=== PATIENT | male | born 1955 | race Caucasian/White ===

== ENCOUNTER 2020-04-22 00:46 | Emergency (ER) | payer SELFPAY ==
[~2020-04-22] VITALS: Ht 172.7 cm; Wt 110.0 kg
[2020-04-22] MEDS ORDERED: LIDOCAINE PF 2% 5 ML (XYLOCAINE) VIAL ONE (01:01)
[2020-04-22] MEDS ORDERED: LIDOCAINE/EPI 2% 1:100,00 (XYLOCAINE) 20 ML VIAL ONE (01:05)
[2020-04-22] MEDS ORDERED: lisINopril 10 MG (PRINIVIL) TABLET PO ONE (01:15)
[2020-04-22] MEDS ORDERED: cloNIDine 0.2 MG (CATAPRES) TAB PO ONE (01:15)
[2020-04-22] MEDS ORDERED: LISI40TA PO (01:19)
[2020-04-22] MEDS ORDERED: CEPH-507 PO (01:19)
[2020-04-22] MEDS ORDERED: CARV6.252 PO (01:19)
--- NOTE | 2020-04-22 01:19 | ED EENT ---
History of Present Illness General Chief Complaint: Nasal Problems Stated Complaint: NOSE BLEED History of Present Illness Date Seen by Provider: Apr 22, 2020 Time Seen by Provider: 01:13 Initial Comments Patient presenting to emergency department for evaluation of epistaxis that started approximately 11 PM and he said he could not get it to stop with pressure so he presented to the emergency department. He denies prior epistaxis says that he used to be on blood pressure medicines but had to stop them a year ago as he could not afford them anymore now he does not have a primary care provider. Patient denies any dizziness weakness nausea vomiting. He is in no obvious distress but is quite hypertensive and tachycardic. He thinks it with medications he was on lisinopril but does not remember the other medication he was on. Allergies and Home Medications Allergies Coded Allergies: No Known Drug Allergies (Unverified , 04/22/20) Patient Home Medication List Home Medication List Reviewed: Yes Review of Systems Review of Systems Constitutional: no symptoms reported Eyes: No Symptoms Reported Ears: No Symptoms Reported Nose: epistaxis Mouth: no symptoms reported Respiratory: no symptoms reported Cardiovascular: no symptoms reported Gastrointestinal: no symptoms reported Neurological: No Symptoms Reported All Other Systems Reviewed Negative Unless Noted: Yes Past Namnekh-Pjoorw-Kbeedz Hx Patient Social History Alcohol Use: Occasionally Uses Recreational Drug Use: Yes Drug of Choice: marijuana Smoking Status: Never a Smoker 2nd Hand Smoke Exposure: No Recent Foreign Travel: No Contact w/Someone Who Travel: No Recent Hopitalizations: No Seasonal Allergies Seasonal Allergies: No Past Medical History Surgeries: No Respiratory: No Cardiac: Yes Hypertension Neurological: No Genitourinary: No Gastrointestinal: No Musculoskeletal: No Endocrine: No HEENT: No Cancer: No Psychosocial: No Integumentary: No Blood Disorders: No Physical Exam Height, Weight, BMI Height: '" Weight: lbs. oz. kg; BMI Method: General Appearance: WD/WN, no apparent distress Eyes: bilateral eye PERRL, bilateral eye EOMI Ears: bilateral ear TM normal Nose: active bleeding (right naris has no bleeding however the left naris has what appears to be an anterior source with active bleeding. There is posterior pharyngeal bleeding is well) Mouth/Throat: pharynx normal Neck: supple Cardiovascular: tachycardia Respiratory: no respiratory distress Gastrointestinal: non tender, soft Skin: warm/dry Procedures/Interventions Nasal : Nasal Location: Left Clots Cleared from Nasal: Patient Blowing Nasal Drops Instilled: Afrin, Lidocaine Inspection with: Otoscope Nasal Procedures: Rapid Rhino Progress Afrin was put in both ears and then lidocaine with epinephrine was also placed and the bleeding slowed down however did not completely stops of a Rhino Rocket was placed in the left ear with complete sensation of the bleeding afterwards Progress/Results/Core Measures Results/Orders My Orders Orders - JCARLOS STRAUSS DO Lidocaine 2% Pf 5 Ml (Xylocaine 2% Pf) (04/22/20 01:01) Lisinopril Tablet (Zestril Tablet) (04/22/20 01:15) Clonidine Tablet (Catapres Tablet) (04/22/20 01:15) Lidocaine/Epi 2% 1:100,000 (Xylocaine/Ep (04/22/20 01:05) Progress Progress Note : Progress Note Patient takes no blood thinners and faxed takes no medications at all despite he should be on medications for blood pressure. I gave him a dose of lisinopril and clonidine here and his blood pressure and heart rate improved however told him that I will need to start him on 2 blood pressure medications and he will ne ed follow with a primary care provider. I started him on $4 medications for blood pressure and Keflex to prevent infection. I told her follow with ENT Dr. Masters and also reemphasized the importance of having his chronic hypertension treated as medications to put him on will likely not be exactly what he needs and will have to be adjusted as needed on repeat blood pressure checks. Patient's heart rate improved to 92 and his blood pressure improved as well but I did not want to get into a normal range as this would cause him to quick of a decrease in his blood pressure. Patient aware and agreeable with plan for discharge and verbalized understanding of the need for short-term PCP and ENT follow-up and strict ED return precautions discussed including worsening pain bleeding dizziness or other general concerns. Departure Impression Primary Impression: Epistaxis Additional Impression: Asymptomatic hypertension Disposition: HOME, SELF-CARE Condition: Stable Departure-Patient Inst. Referrals: AWAIS MASTERS MD NO,LOCAL PHYSICIAN (PCP) Primary Care Physician Patient Instructions: Nosebleeds (DC) Scripts Carvedilol (Carvedilol) 6.25 Mg Tablet 6.25 MG PO BID, #60 TAB Prov: JCARLOS STRAUSS DO 04/22/20 Lisinopril (Lisinopril) 40 Mg Tablet 40 MG PO DAILY, #30 TAB Prov: JCARLOS STRAUSS DO 04/22/20 Cephalexin (Keflex) 500 Mg Capsule 500 MG PO BID for 7 Days, CAP Prov: JCARLOS STRAUSS DO 04/22/20 JCARLOS STRAUSS DO Apr 22, 2020 01:18
[2020-04-22 02:10] VITALS: BP 215/155
== END 2020-04-22 02:10 | disposition home or self-care (01) ==
LOC: ER FS 00:49
DX: R04.0 Epistaxis (principal); I10 Essential (primary) hypertension

== ENCOUNTER 2020-04-26 19:21 | Inpatient (IN) | payer SELFPAY ==
[~2020-04-26] VITALS: Ht 172.7 cm; Wt 113.9 kg
[~2020-04-26 19:21] MED LIST: CARV6.252 PO; CEPH-507 PO; LISI40TA PO
[2020-04-26] MEDS ORDERED: LABETALOL HCL 20 MG/4 ML VIAL IV ONE ×3 (19:45→21:00)
[2020-04-26 20:06] LABS: HEMATOCRIT 42 % (40-54); HEMOGLOBIN 13.5 G/DL (13.3-17.7); MEAN CORPUSCULAR HEMOGLOBIN 27 PG (25-34); MEAN CORPUSCULAR HGB CONC 33 G/DL (32-36); MEAN CORPUSCULAR VOLUME 84 FL (80-99); MEAN PLATELET VOLUME 9.7 FL (7.4-10.4); WHITE BLOOD COUNT 13.3 10^3/uL (4.3-11.0)
[2020-04-26 20:07] LABS: BASOPHILS # (AUTO) 0.1 10^3/uL (0.0-0.1); BASOPHILS % (AUTO) 1 % (0-10); EOSINOPHILS # (AUTO) 0.2 10^3/uL (0.0-0.3); EOSINOPHILS % (AUTO) 1 % (0-10); LYMPHOCYTES # (AUTO) 1.6 X 10^3 (1.0-4.0); LYMPHOCYTES % (AUTO) 12 % (12-44); MONOCYTES # (AUTO) 0.8 X 10^3 (0.0-1.0); MONOCYTES % (AUTO) 6 % (0-12); NEUTROPHILS # (AUTO) 10.6 X 10^3 (1.8-7.8); NEUTROPHILS % (AUTO) 80 % (42-75); PLATELET COUNT 449 10^3/uL (130-400)
[2020-04-26 20:08] LABS: INR 0.9 (0.8-1.4); PROTHROMBIN TIME PATIENT 12.4 SEC (12.2-14.7)
[2020-04-26 20:16] LABS: BUN/CREATININE RATIO 15; CARBON DIOXIDE 25 MMOL/L (21-32); CHLORIDE 107 MMOL/L (98-107); CREATININE SERUM 1.43 MG/DL (0.60-1.30); GFR ESTIMATED 50; GLUCOSE 117 MG/DL (70-105); POTASSIUM 4.4 MMOL/L (3.6-5.0); SODIUM 143 MMOL/L (135-145)
[2020-04-26 20:17] LABS: ALANINE AMINOTRANSFERASE 15 U/L (0-55); ALBUMIN 4.6 GM/DL (3.2-4.5); ALKALINE PHOSPHATASE 117 U/L (40-136); BILIRUBIN,TOTAL 0.2 MG/DL (0.1-1.0); CALCIUM 9.3 MG/DL (8.5-10.1); TOTAL PROTEIN 7.6 GM/DL (6.4-8.2)
[2020-04-26] MEDS ORDERED: NITROPRUSSIDE INJECTION 50 MG in D5W IV SOLUTION (EXCEL) 250 ML IV SCH (22:15)
[2020-04-27] MEDS ORDERED: NITROPRUSSIDE INJECTION 50 MG in D5W IV SOLUTION (EXCEL) 250 ML IV SCH (01:15)
[2020-04-27 03:18] LABS: BASOPHILS % (AUTO) 0 % (0-10); EOSINOPHILS # (AUTO) 0.1 10^3/uL (0.0-0.3); EOSINOPHILS % (AUTO) 1 % (0-10); HEMATOCRIT 36 % (40-54); HEMOGLOBIN 11.6 g/dL (13.3-17.7); LYMPHOCYTES # (AUTO) 1.4 10^3/uL (1.0-4.0); LYMPHOCYTES % (AUTO) 13 % (12-44); MEAN CORPUSCULAR HEMOGLOBIN 28 pg (25-34); MEAN CORPUSCULAR HGB CONC 32 g/dL (32-36); MEAN CORPUSCULAR VOLUME 85 fL (80-99); MEAN PLATELET VOLUME 10.1 fL (9.0-12.2); MONOCYTES # (AUTO) 0.9 10^3/uL (0.0-1.0); MONOCYTES % (AUTO) 8 % (0-12); NEUTROPHILS # (AUTO) 8.5 10^3/uL (1.8-7.8); NEUTROPHILS % (AUTO) 77 % (42-75); PLATELET COUNT 353 10^3/uL (130-400); WHITE BLOOD COUNT 11.1 10^3/uL (4.3-11.0)
--- NOTE | 2020-04-27 03:24 | Pulmonary Consultation ---
YOAV SOLIS,MED STUDENT 04/27/20 0324: History of Present Illness History of Present Illness Date Seen by Provider: Apr 27, 2020 Time Seen by Provider: 03:00 Date of Admission 04/26/20 History of Present Illness Patient is a 65yo male who presented to [facility] ED via EMS yesterday c/o a nosebleed that began 1 hour prior. He has a history of hypertension, and was recently seen in the ED on 04/22 for similar symptoms. He does not have a PCP and has not taken any antihypertensives for a long time due to cost. He also reports headaches and some dizziness, but denies CP, palpitations, syncope, n/v/abdominal pain. He denies any trauma to the area. Initial blood pressure in the ED was 262/167, and he was given a total of 3 doses of Labetalol 20mg IV while in the ED. Blood pressure improved to 177/123, but after admission increased again to 230/157. He was started on nitroprusside, and at the time of exam his blood pressure had improved to 150/111. Allergies and Home Medications Allergies Coded Allergies: No Known Drug Allergies (Unverified , 04/22/20) Home Medications Carvedilol 6.25 Mg Tablet, 6.25 MG PO BID Prescribed by: JCARLOS STRAUSS on 04/22/20118 Cephalexin 500 Mg Capsule, 500 MG PO BID Prescribed by: JCARLOS STRAUSS on 04/22/20118 Lisinopril 40 Mg Tablet, 40 MG PO DAILY Prescribed by: JCARLOS STRAUSS on 04/22/20118 Past Ttiyzmo-Frxuue-Iuibcj Hx Patient Social History Alcohol Use: Denies Use Recreational Drug Use: No Drug of Choice: marijuana Smoking Status: Never a Smoker 2nd Hand Smoke Exposure: No Recent Foreign Travel: No Contact w/Someone Who Travel: No Recent Infectious Disease Expo: No Recent Hopitalizations: No Physical Abuse: No Sexual Abuse: No Mistreated: No Fear: No Seasonal Allergies Seasonal Allergies: No Past Medical History Surgeries: No Respiratory: No Cardiac: Yes Hypertension Neurological: No Genitourinary: No Gastrointestinal: No Musculoskeletal: No Endocrine: No HEENT: No Cancer: No Psychosocial: No Integumentary: No Blood Disorders: No Review of Systems Constitutional: No: Fever, Chills, Weakness Eyes: No: Pain, Vision change ENT: Nose congestion; No: Throat pain, Throat swelling Respiratory: No: Cough, Shortness of breath, Wheezing Cardiovascular: Lt Headedness; No: Chest Pain, Palpitations, Edema Gastrointestinal: No: Nausea, Vomiting, Abdominal Pain, Hematochezia Genitourinary: No Dysuria, No Frequency Neurological: No: Weakness, Numbness, Change in speech Sepsis Event Evaluation Height, Weight, BMI Height: '" Weight: lbs. oz. kg; 38.55 BMI Method: Exam Exam Vital Signs Date Time Temp Pulse Resp B/P (MAP) Pulse Ox O2 Delivery O2 Flow Rate FiO2 04/27/20 01:00 98 Room Air 04/27/20 00:45 35.2 91 20 230/157 97 Room Air 04/26/20 23:27 90 20 177/123 96 Room Air 04/26/20 22:23 91 18 192/127 04/26/20 19:28 37.0 121 20 262/167 (198) 97 Room Air Height & Weight Height: '" Weight: lbs. oz. kg; 38.55 BMI Method: General Appearance: No Apparent Distress, WD/WN, Obese HEENT: PERRL/EOMI, Pharynx Normal Neck: Full Range of Motion, Non Tender, Supple Respiratory: Chest Non Tender, Lungs Clear, Normal Breath Sounds, No Accessory Muscle Use Cardiovascular: Regular Rate, Rhythm, No Edema, No Murmur, Normal Peripheral Pulses Capillary Refill: Less Than 3 Seconds Gastrointestinal: normal bowel sounds, non tender Extremity: Non Tender, No Calf Tenderness, No Pedal Edema Neurologic/Psychiatric: Alert, Oriented x3, Normal Mood/Affect Skin: Normal Color, Warm/Dry Results Lab Laboratory Tests 04/26/20 19:34 Assessment/Plan Assessment/Plan Hypertensive emergency -currently on nitroprusside -EKG Acute kidney injury -monitor creatinine Leukocytosis -improving DVT ppx -SCD's FLAKO BARRERA DO 04/27/20 0450: Allergies and Home Medications Allergies Coded Allergies: No Known Drug Allergies (Unverified , 04/22/20) Home Medications Carvedilol 6.25 Mg Tablet, 6.25 MG PO BID Prescribed by: JCARLOS STRAUSS on 04/22/20118 Cephalexin 500 Mg Capsule, 500 MG PO BID Prescribed by: JCARLOS STRAUSS on 04/22/20118 Lisinopril 40 Mg Tablet, 40 MG PO DAILY Prescribed by: JCARLOS STRAUSS on 04/22/20 0119 Assessment/Plan Assessment/Plan Hypertensive emergency -currently on nitroprusside -D/C nitroprusside -Start Lisinopril and Lopressor PO -Hydralazine PRN, -EKG Acute kidney injury -monitor creatinine -Check UA Leukocytosis -improving DVT ppx -SCD's Supervisory-Addendum Brief Verification & Attestation Participated in pt care: history, MDM, physical Personally performed: exam, history, MDM Care discussed with: Medical Student Procedures: n/a Verification and Attestation of Medical Student E/M Service A medical student performed and documented this service in my presence. I reviewed and verified all information documented by the medical student and made modifications to such information, when appropriate. I personally performed the physical exam and medical decision making. Flako Barrera, Apr 27, 2020,04:52 YOAV SOLIS,MED STUDENT Apr 27, 2020 03:24 FLAKO BARRERA DO Apr 27, 2020 04:50
[2020-04-27 03:33] LABS: ALBUMIN 3.9 GM/DL (3.2-4.5); CHLORIDE 109 MMOL/L (98-107); POTASSIUM 4.4 MMOL/L (3.6-5.0); SODIUM 144 MMOL/L (135-145)
[2020-04-27 03:34] LABS: CALCIUM 8.3 MG/DL (8.5-10.1)
[2020-04-27 03:35] LABS: GLUCOSE 101 MG/DL (70-105); TOTAL PROTEIN 5.8 GM/DL (6.4-8.2)
[2020-04-27 03:36] LABS: CARBON DIOXIDE 23 MMOL/L (21-32)
[2020-04-27 03:37] LABS: BILIRUBIN,TOTAL 0.3 MG/DL (0.1-1.0)
[2020-04-27 03:39] LABS: ALKALINE PHOSPHATASE 78 U/L (40-136); CREATININE SERUM 1.13 MG/DL (0.60-1.30); GFR ESTIMATED > 60
[2020-04-27 03:40] LABS: BUN/CREATININE RATIO 20
[2020-04-27 03:42] LABS: ALANINE AMINOTRANSFERASE 14 U/L (0-55)
--- NOTE | 2020-04-27 07:25 | Diagnostic Imaging Report ---
EXAMINATION: Chest 1 view HISTORY: Hypertensive crisis. COMPARISON: None available. FINDINGS: The lung volumes are normal. No focal consolidation is seen. No large pleural effusion or pneumothorax is seen. The cardiomediastinal silhouette is normal in size and contour. No acute osseous abnormality is seen. IMPRESSION: 1. No acute pleuroparenchymal process. Dictated by: Dictated on workstation # [id number]
[2020-04-27] MEDS ORDERED: HYDROCHLOROTHIAZIDE 12.5 MG (HCTZ) CAP PO SCH (09:00)
[2020-04-27] MEDS ORDERED: lisINopril 20 MG (PRINIVIL) TABLET PO SCH (09:00)
[2020-04-27] MEDS ORDERED: meTOprolol TARTRATE 25 MG (LOPRESSOR) TABLET PO SCH (09:00)
[2020-04-27] MEDS: CARVEDILOL 12.5 MG (COREG) TABLET PO SCH ×2 (10:05→20:10)
[2020-04-27] MEDS: hydrALAZINE (APESOLINE) 20 MG/ML VIAL IV PRN ×2 (10:05→17:04)
[2020-04-27] MEDS ORDERED: HYDROCHLOROTHIAZIDE 12.5 MG (HCTZ) CAP PO NR (11:25)
[2020-04-27] MEDS ORDERED: lisINopril 20 MG (PRINIVIL) TABLET PO NR (11:25)
[2020-04-27] MEDS ORDERED: hydrALAZINE (APRESOLINE) 25 MG TAB PO PRN (11:30)
[2020-04-27] MEDS ORDERED: MULT-1076 PO (11:38)
[2020-04-27] MEDS ORDERED: IBUP-2473 PO (11:38)
[2020-04-27] MEDS ORDERED: CARV6.252 PO (11:38)
[2020-04-27] MEDS ORDERED: LISI40TA PO (11:38)
[2020-04-27] MEDS ORDERED: CEPH500C PO (11:38)
--- NOTE | 2020-04-27 11:39 | NUR ---
SPOKE WITH THE PT (CALLED HIS ROOM PHONE) AND WENT THRU THE EXT MED HISTORY TO COMPLETE THE MED REC PT WAS ABLE TO NAME HIS MEDICATIONS WELL WHEN/HOW HE TAKES EACH, PT DID LET ME KNOW THAT ALL THE MEDICATIONS HE IS TAKING (LISINOPRIL AND CARVEDILOL) ARE NEW OF 04-22-2020 OTC MEDS: MTV W/ IRON IBUPROFEN 200MG- ACCORDING TO THE PT HE TAKES 4 TABS UP TO THREE TIMES A DAY
--- NOTE | 2020-04-27 15:02 | NUR ---
CM/SS: Visited with pt as to plan for discharge, as well as obtaining a physician for management of his high blood pressure. Plan: Pt is from home and will return there. Pt lives with his adult son. Pt will need a ride to [place] when he is discharged and can pay for a portion of the cost. Summary: Pt is in bed at the time of the visit. Pt reports he is here due to his blood pressure being high. According to the monitor it is remaining high at this time. Pt reports a family history of high blood pressure and he has had family members that have had strokes. Pt is advised that many medical things can happen when his blood pressure is so high. He verbalizes understanding. He does report that he seen a doctor in the past and was on two medications up to four times per day. He can not remember the physicians name, but he reports it did help, however he quit taking the medications as he had difficulty with transportation and getting back and forth to appointments. Pt verbalizes understanding of needing to get another physician to monitor his blood pressure. Pt is open to having a physician set up at the [facility] and he reports he will be able to make the appointments and keep his blood pressure in check. Pt lives with his son and shares that both of them currently have suspended drivers licenses and know what they need to do to get them back. He does have an extended family member that can transport him locally to his medical appointments. Pt reports he does not have any other needs related to medical equipment etc. This worker will follow up with pt again once more in known on pt's date of discharge.
--- NOTE | 2020-04-27 15:04 | History & Physical-Hospitalist ---
History of Present Illness HPI/Chief Complaint Gonzalez Mayorga is a 65-year-old male with past medical history of hypertension who presented with a nose bleed. He reports that he had a nose bleed a few days ago and came into the [place] ER. The nose bleed resolved and he was sent home. He was also found to be hypertensive and was started on blood pressure medications, but he did not pick them up. He said he has not been able to afford his medications for some time. He reports headaches. He denies vision changes. He denies fever and chills. He denies chest pain. He denies palpitations. He denies shortness of breath and cough. He denies abdominal pain, nausea, vo miting, diarrhea, and constipation. He denies pain with urination. He does not smoke. He drinks rarely. He uses marijuana rarely. Source: patient Exam Limitations: no limitations Date Seen 04/27/20 Time Seen by a Provider: 09:00 Attending Physician Mercy Sellers DO PCP No,Local Physician Referring Physician Date of Admission Apr 26, 2020 at 22:00 Home Medications & Allergies Home Medications Reviewed patient Home Medication Reconciliation performed by pharmacy medication reconciliations rfid technician and/or nursing. Patients Allergies have been reviewed. Allergies Allergies Coded Allergies No Known Drug Allergies (Klttrqzzch22/3/20) Past Rhhyxoo-Wlcemb-Bqdgxt Hx Past Med/Social Hx: Reviewed Nursing Past Med/Soc Hx Patient Social History Alcohol Use: Denies Use Recreational Drug Use: No Drug of Choice: marijuana Smoking Status: Never a Smoker 2nd Hand Smoke Exposure: No Recent Foreign Travel: No Contact w/other who traveled: No Recent Hopitalizations: No Recent Infectious Disease Expo: No Seasonal Allergies Seasonal Allergies: No Past Medical History Cardiac: Hypertension History of Blood Disorders: No Review of Systems Constitutional: no symptoms reported EENTM: epistaxis Respiratory: no symptoms reported Cardiovascular: no symptoms reported Gastrointestinal: no symptoms reported Genitourinary: no symptoms reported Musculoskeletal: no symptoms reported Skin: no symptoms reported Psychiatric/Neurological: No Symptoms Reported Physical Exam Physical Exam Vital Signs Vital Signs - First Documented 04/26/20 19:28 Temp 37.0 Pulse 121 Resp 20 B/P (MAP) 262/167 (198) Pulse Ox 97 O2 Delivery Room Air Capillary Refill : Less Than 3 Seconds Height, Weight, BMI Height: '" Weight: lbs. oz. kg; 38.55 BMI Method: General Appearance: No Apparent Distress, Obese HEENT: PERRL/EOMI, Pharynx Normal Neck: Normal Inspection, Supple Respiratory: Lungs Clear, Normal Breath Sounds, No Respiratory Distress Cardiovascular: Regular Rate, Rhythm, No Edema, No Murmur, Normal Peripheral Pulses Gastrointestinal: Normal Bowel Sounds, Non Tender, Soft Extremity: Normal Inspection, Non Tender, No Pedal Edema Neurologic/Psychiatric: Alert, Oriented x3, No Motor/Sensory Deficits, Normal Mood/Affect Skin: Normal Color, Warm/Dry Lymphatic: No Adenopathy Results Results/Procedures Labs Laboratory Tests 04/26/20 19:34 04/27/20 02:39 Patient resulted labs reviewed. Imaging: Reviewed Imaging Report Assessment/Plan Admission Diagnosis Hypertensive emergency Admission Status: Inpatient Order (span 2 midnights) Reason for Inpatient Admission: HTN requiring IV medications Assessment and Plan Hypertensive emergency Epistaxis VALERIA BP 260/160 on arrival Initially started on Nitroprusside Transitioned to oral meds this morning Started on HCTZ, Lisinopril, Metoprolol Transition from Metoprolol to Coreg Increase doses of HCTZ and Lisinopril Hydralazine as needed Cr 1.4 on arrival, 1.1 this morning Obesity Clinically significant, no acute management needs DVT Prophylaxis: Lovenox Diagnosis/Problems Diagnosis/Problems (1) Hypertensive emergency Status: Acute (2) Epistaxis Status: Acute (3) VALERIA (acute kidney injury) Status: Acute (4) Obesity Status: Chronic Clinical Quality Measures DVT/VTE Risk/Contraindication: Risk Factor Score Per Nursin RFS Level Per Nursing on Admit: 3=High ELIANE PATRICAI MD Apr 27, 2020 15:04
[2020-04-27] MEDS ORDERED: ENOXAPARIN 40 MG/0.4 ML (LOVENOX) SYR SC SCH (17:15)
[2020-04-27] MEDS ORDERED: ANTACID SUSP 30 ML UDC (MYLANTA) PO PRN (17:15)
[2020-04-27] MEDS ORDERED: ACETAMINOPHEN 325 MG TABLET PO PRN (17:15)
[2020-04-27] MEDS ORDERED: polyethylene glycoL POWDER 17 GM (MIRALAX) PACK PO PRN (17:15)
[2020-04-27] MEDS ORDERED: ONDANSETRON 4 MG/2 ML (SDV) Z0FRAN IV PRN (17:15)
[2020-04-27] MEDS ORDERED: diphenhydrAMINE 25 MG TAB (BENADRYL) PO PRN (17:15)
[2020-04-27] MEDS ORDERED: ONDANSETRON 4 MG (ZOFRAN) ORAL DISSOLVE TAB PO PRN (17:15)
[2020-04-27] MEDS ORDERED: MELATONIN 3 MG TABLET PO PRN (17:15)
[2020-04-27] MEDS ORDERED: cloNIDine 0.1 MG (CATAPRES) TAB ONE (18:38)
[2020-04-27] MEDS ORDERED: PHENYLEPHRINE 0.5% NASAL SPR (NEO-SYNEPHRINE) REG ONE (18:45)
[2020-04-27] MEDS ORDERED: cloNIDine 0.1 MG (CATAPRES) TAB PO ONE (18:45)
[2020-04-27] MEDS ORDERED: OXYMETAZOLINE (AFRIN) 0.05% NA 30 ML BTL ONE (18:48)
[2020-04-27] MEDS ORDERED: ALPRAZolam 1 MG (XANAX) TAB PO PRN (19:15)
[2020-04-27] MEDS ORDERED: ALPRAZolam 0.5 MG (XANAX) TAB ONE (19:55)
[2020-04-27] MEDS: cloNIDine 0.1 MG (CATAPRES) TAB PO SCH ×2 (20:10→20:17)
[2020-04-27] MEDS: DOCUSATE SODIUM 100 MG (COLACE) CAP PO SCH (20:17)
[2020-04-27] MEDS: SENNOSIDES 8.6 MG (SENOKOT) TAB PO SCH (20:18)
[2020-04-27] MEDS: ALPRAZolam 1 MG (XANAX) TAB PO PRN (20:23)
[2020-04-28 04:09] LABS: BASOPHILS % (AUTO) 0 % (0-10); EOSINOPHILS # (AUTO) 0.1 10^3/uL (0.0-0.3); EOSINOPHILS % (AUTO) 1 % (0-10); HEMATOCRIT 37 % (40-54); HEMOGLOBIN 11.7 g/dL (13.3-17.7); LYMPHOCYTES # (AUTO) 1.8 10^3/uL (1.0-4.0); LYMPHOCYTES % (AUTO) 15 % (12-44); MEAN CORPUSCULAR HEMOGLOBIN 27 pg (25-34); MEAN CORPUSCULAR HGB CONC 32 g/dL (32-36); MEAN CORPUSCULAR VOLUME 84 fL (80-99); MONOCYTES # (AUTO) 1.3 10^3/uL (0.0-1.0); MONOCYTES % (AUTO) 10 % (0-12); NEUTROPHILS # (AUTO) 9.1 10^3/uL (1.8-7.8); NEUTROPHILS % (AUTO) 73 % (42-75); PLATELET COUNT 381 10^3/uL (130-400); WHITE BLOOD COUNT 12.3 10^3/uL (4.3-11.0)
--- NOTE | 2020-04-28 04:20 | Pulmonary Progress Note ---
Subjective Time Seen by a Provider: 04:16 Sepsis Event Evaluation Height, Weight, BMI Height: '" Weight: lbs. oz. kg; 38.55 BMI Method: Exam Exam Vital Signs Date Time Temp Pulse Resp B/P (MAP) Pulse Ox O2 Delivery O2 Flow Rate FiO2 04/28/20 00:00 82 15 102/70 (81) 98 Room Air 04/27/20 20:00 36.9 105 18 188/130 (149) 98 Room Air 04/27/20 20:00 Room Air 04/27/20 19:00 110 04/27/20 18:30 208/133 (158) 04/27/20 18:00 145/109 (121) 04/27/20 17:02 98 16 195/143 (160) 100 Room Air 04/27/20 16:00 36.6 101 17 167/119 (135) 95 Room Air 04/27/20 15:00 80 153/119 (130) 97 Room Air 04/27/20 14:00 88 175/115 (135) 96 Room Air 04/27/20 13:00 86 139/96 (110) 97 Room Air 04/27/20 12:32 74 04/27/20 12:00 84 150/108 (122) 97 Room Air 04/27/20 11:00 84 172/120 (137) 98 Room Air 04/27/20 10:00 188/130 (149) 04/27/20 10:00 96 188/130 (149) 97 Room Air 04/27/20 08:00 Room Air 04/27/20 08:00 36.6 04/27/20 06:00 90 156/113 99 Room Air 04/27/20 05:00 89 13 157/136 98 Room Air I & O 04/28/20 06:59 Intake Total 900 ml Output Total 200 ml Balance 700 ml Height & Weight Height: '" Weight: lbs. oz. kg; 38.55 BMI Method: General Appearance: No Apparent Distress, Obese HEENT: PERRL/EOMI, Pharynx Normal Neck: Normal Inspection, Supple Respiratory: Lungs Clear, Normal Breath Sounds, No Respiratory Distress Cardiovascular: Regular Rate, Rhythm, No Edema, No Murmur, Normal Peripheral Pulses Capillary Refill: Less Than 3 Seconds Gastrointestinal: normal bowel sounds, non tender Extremity: Normal Inspection, Non Tender, No Pedal Edema Neurologic/Psychiatric: Alert, Oriented x3, No Motor/Sensory Deficits, Normal Mood/Affect Skin: Normal Color, Warm/Dry Lymphatic: No Adenopathy Results Lab Laboratory Tests 04/26/20 19:34 04/27/20 02:39 Assessment/Plan Assessment/Plan HTN now controlled -Continue PO meds -Hydralazine PRN, -EKG Acute kidney injury -monitor creatinine -Check UA Leukocytosis -improving DVT ppx -SCD's KALEE BARRERA DO Apr 28, 2020 04:20
[2020-04-28 04:22] LABS: POTASSIUM 3.9 MMOL/L (3.6-5.0)
[2020-04-28 04:24] LABS: CALCIUM 8.5 MG/DL (8.5-10.1)
[2020-04-28 04:28] LABS: CREATININE SERUM 1.68 MG/DL (0.60-1.30); PHOSPHORUS 3.1 MG/DL (2.3-4.7)
--- NOTE | 2020-04-28 08:25 | Diagnostic Imaging Report ---
INDICATION: Hypertensive crisis. Time of exam: 5:34 AM Correlation is made with prior chest from one day earlier. The heart size is normal. The pulmonary vascularity is unremarkable. The lungs are clear. No infiltrate, effusion or pneumothorax is detected. IMPRESSION: No acute cardiopulmonary process is detected. Dictated by: Dictated on workstation # [id number]
[2020-04-28] MEDS ORDERED: lisINopril 40 MG (PRINIVIL) TABLET PO SCH (09:00)
[2020-04-28] MEDS: ALPRAZolam 1 MG (XANAX) TAB PO PRN (09:06)
[2020-04-28] MEDS: HYDROCHLOROTHIAZIDE 25 MG (HCTZ) TAB PO SCH (09:06)
[2020-04-28] MEDS: CARVEDILOL 12.5 MG (COREG) TABLET PO SCH ×2 (09:07→20:37)
[2020-04-28] MEDS: SENNOSIDES 8.6 MG (SENOKOT) TAB PO SCH ×2 (09:07→20:36)
[2020-04-28] MEDS: DOCUSATE SODIUM 100 MG (COLACE) CAP PO SCH ×2 (09:07→20:36)
[2020-04-28 09:43] LABS: BILIRUBIN,URINE 1+ (NEGATIVE); CLARITY,URINE CLEAR; COLOR,URINE YELLOW; GLUCOSE, URINE (UA) NEGATIVE (NEGATIVE); KETONES,URINE TRACE (NEGATIVE); LEUKOCYTE ESTERASE ,URINE NEGATIVE (NEGATIVE); NITRITE,URINE NEGATIVE (NEGATIVE); PH,URINE 5.5 (5-9); PROTEIN,URINE 1+ (NEGATIVE)
[2020-04-28] MEDS ORDERED: CARVEDILOL 12.5 MG (COREG) TABLET PO NR (09:45)
[2020-04-28 10:15] LABS: AMORPHOUS SEDIMENT,UR FEW AMOR URATES /LPF; BACTERIA,URINE TRACE /HPF; SQUAMOUS EPITHELIAL CELL,UR 0-2 /HPF; WBC,URINE 0-2 /HPF
--- NOTE | 2020-04-28 12:02 | Progress Note - Hospitalist ---
Subjective HPI/CC On Admission Date Seen by Provider: Apr 28, 2020 Time Seen by Provider: 09:15 Gonzalez Mayorga is a 65-year-old male with past medical history of hypertension who presented with a nose bleed. He reports that he had a nose bleed a few days ago and came into the [facility] ER. The nose bleed resolved and he was sent home. He was also found to be hypertensive and was started on blood pressure medications, but he did not pick them up. He said he has not been able to afford his medications for some time. He reports headaches. He denies vision changes. He denies fever and chills. He denies chest pain. He denies palpitations. He denies shortness of breath and cough. He denies abdominal pain, nausea, vomiting, diarrhea, and constipation. He denies pain with urination. He does not smoke. He drinks rarely. He uses marijuana rarely. Subjective/Events-last exam He is feeling better this morning. He has not had any nose bleeding today. He still has a bit of a headache. He denies chest pain. He denies shortness of breath. Objective Exam Vital Signs Vital Signs Date Time Temp Pulse Resp B/P (MAP) Pulse Ox O2 Delivery O2 Flow Rate FiO2 04/28/20 08:00 Room Air 04/28/20 08:00 36.1 96 20 183/104 (130) 98 Capillary Refill : Less Than 3 Seconds General Appearance: No Apparent Distress, Obese Respiratory: Lungs Clear, Normal Breath Sounds, No Respiratory Distress Cardiovascular: Regular Rate, Rhythm, No Murmur Gastrointestinal: Normal Bowel Sounds, Non Tender, Soft Extremity: Normal Inspection, Non Tender, Pedal Edema (trace) Neurologic/Psychiatric: Alert, Oriented x3, No Motor/Sensory Deficits, Normal Mood/Affect Skin: Normal Color, Warm/Dry Results/Procedures Lab Laboratory Tests 04/28/20 03:43 Patient resulted labs reviewed. Imaging: Reviewed Imaging Report Assessment/Plan Assessment and Plan Assess & Plan/Chief Complaint Hypertensive emergency Resistant hypertension BP 260/160 on arrival Continue HCTZ, Lisinopril, Coreg Stop Clonidine Hydralazine as needed Secondary hypertension workup initiated TSH normal Renin:Braden ratio pending Metanephrines pending Renal artery ultrasound ordered Epistaxis Resolved at this time Dr. Masters consulted, appreciate assistance VALERIA Cr 1.68, increased UA with granular casts Obesity Clinically significant, no acute management needs DVT Prophylaxis: held due to epistaxis Diagnosis/Problems Diagnosis/Problems (1) Hypertensive emergency Status: Acute (2) Resistant hypertension Status: Acute (3) Epistaxis Status: Acute (4) VALERIA (acute kidney injury) Status: Acute (5) ATN (acute tubular necrosis) (6) Obesity Status: Chronic Clinical Quality Measures DVT/VTE Risk/Contraindication: Risk Factor Score Per Nursin RFS Level Per Nursing on Admit: 3=High ELIANE PATRICIA MD Apr 28, 2020 12:02
[2020-04-29 05:41] LABS: BASOPHILS % (AUTO) 0 % (0-10); EOSINOPHILS # (AUTO) 0.2 10^3/uL (0.0-0.3); EOSINOPHILS % (AUTO) 2 % (0-10); HEMATOCRIT 35 % (40-54); HEMOGLOBIN 10.9 g/dL (13.3-17.7); LYMPHOCYTES # (AUTO) 2.1 10^3/uL (1.0-4.0); LYMPHOCYTES % (AUTO) 20 % (12-44); MEAN CORPUSCULAR HEMOGLOBIN 27 pg (25-34); MEAN CORPUSCULAR HGB CONC 32 g/dL (32-36); MEAN CORPUSCULAR VOLUME 85 fL (80-99); MEAN PLATELET VOLUME 9.9 fL (9.0-12.2); MONOCYTES % (AUTO) 9 % (0-12); NEUTROPHILS # (AUTO) 7.4 10^3/uL (1.8-7.8); NEUTROPHILS % (AUTO) 68 % (42-75); PLATELET COUNT 353 10^3/uL (130-400); WHITE BLOOD COUNT 10.8 10^3/uL (4.3-11.0)
[2020-04-29 06:06] LABS: CALCIUM 8.4 MG/DL (8.5-10.1); CREATININE SERUM 2.99 MG/DL (0.60-1.30); MAGNESIUM 2.1 MG/DL (1.6-2.4); PHOSPHORUS 3.7 MG/DL (2.3-4.7); POTASSIUM 4.2 MMOL/L (3.6-5.0)
[2020-04-29] MEDS: DOCUSATE SODIUM 100 MG (COLACE) CAP PO SCH ×2 (08:24→20:30)
[2020-04-29] MEDS: SENNOSIDES 8.6 MG (SENOKOT) TAB PO SCH ×2 (08:24→20:30)
[2020-04-29] MEDS: CARVEDILOL 12.5 MG (COREG) TABLET PO SCH ×2 (08:27→20:30)
[2020-04-29] MEDS: HYDROCHLOROTHIAZIDE 25 MG (HCTZ) TAB PO SCH (08:27)
--- NOTE | 2020-04-29 12:35 | Diagnostic Imaging Report ---
US RENAL ART DOPPLER BULMARO COMP TECHNIQUE: Multi-projectional grayscale, color Doppler and spectral duplex imaging of the bilateral kidneys and renal vasculature was performed. INDICATION: Resistant hypertension. COMPARISON: None available. FINDINGS: Aortic peak systolic velocity is 101 cm/s. Right side: Right kidney is normal in size measuring 10 cm. There is no hydronephrosis or suspicious mass lesion. The following measurements were made for the right renal vasculature and/or as follows: Main renal artery: Main renal artery is patent with normal direction of flow has low resistant waveforms. Maximal peak systolic velocity is 114 cm/s in its distal aspect. Interlobular/arcuate arteries: The interlobular and arcuate arteries maintain normal low resistant waveforms without parvus tardus. PSV:Aorta : 1.1 Left side: Left kidney is normal in size measuring 12 cm. There is no hydronephrosis or suspicious mass lesion. The following measurements were made for the left renal vasculature and/or as follows: Main renal artery: Color Doppler imaging shows patency of the main renal artery with normal direction of flow. Normal low resistant waveforms are present. Maximal peak systolic velocity is 133 cm/s in its mid aspect. Interlobular/arcuate arteries: Interlobular and arcuate arteries have normal low resistant arterial waveforms without parvus tardus anomaly. PSV:Aorta : 1.3 IMPRESSION: 1. No features of renal artery stenosis. Abnormal Parameters: PSV > 200 cm/s PSV:Aorta > 3.5 Acceleration Index < 300 cm/sec2 Acceleration time > 70 msec Dictated by: Dictated on workstation # [id number]
--- NOTE | 2020-04-29 12:37 | Progress Note ---
Subjective Subjective Date Seen by Provider: Apr 29, 2020 Time Seen by Provider: 08:00 Gonzalez stated that he is feeling better today and that he would like to go home. He states that he has not had any nosebleeds today. He does currently have a headache, rated it as 3/10, located around his whole head. He denies any chest pain, palpitations, and dizziness. Review of Systems General: No Chills, No Fatigue HEENT: No Visual Changes Cardiovascular: No: Chest Pain, Palpitations, Edema Gastrointestinal: No: Nausea, Vomiting, Abdominal Pain, Diarrhea, Constipation Genitourinary: No Dysuria, No Frequency Neurological: No: Weakness, Numbness, Change in speech Objective Exam Vital Signs Vital Signs - First Documented 04/26/20 19:28 Temp 37.0 Pulse 121 Resp 20 B/P (MAP) 262/167 (198) Pulse Ox 97 O2 Delivery Room Air Capillary Refill : Less Than 3 Seconds General Appearance: No Apparent Distress, WD/WN Respiratory: Lungs Clear, Normal Breath Sounds, No Respiratory Distress Cardiovascular: Regular Rate, Rhythm, No Murmur Gastrointestinal: Normal Bowel Sounds, Non Tender, Soft Extremity: Pedal Edema (trace) Neurologic/Psychiatric: Alert, Normal Mood/Affect Skin: Normal Color, Warm/Dry Results Lab Laboratory Tests 04/29/20 05:10: White Blood Count 10.8, Red Blood Count 4.04L, Hemoglobin 10.9L, Hematocrit 35L, Mean Corpuscular Volume 85, Mean Corpuscular Hemoglobin 27, Mean Corpuscular Hemoglobin Concent 32, Red Cell Distribution Width 14.3, Platelet Count 353, Mean Platelet Volume 9.9, Immature Granulocyte % (Auto) 1, Neutrophils (%) (Auto) 68, Lymphocytes (%) (Auto) 20, Monocytes (%) (Auto) 9, Eosinophils (%) (Auto) 2, Basophils (%) (Auto) 0, Neutrophils # (Auto) 7.4, Lymphocytes # (Auto) 2.1, Monocytes # (Auto) 1.0, Eosinophils # (Auto) 0.2, Basophils # (Auto) 0.0, Immature Granulocyte # (Auto) 0.1, Sodium Level 143, Potassium Level 4.2, Chloride Level 107, Carbon Dioxide Level 24, Anion Gap 12, Blood Urea Nitrogen 48H, Creatinine 2.99#H, Estimat Glomerular Filtration Rate 21, BUN/Creatinine Ratio 16, Glucose Level 95, Calcium Level 8.4L, Phosphorus Level 3.7, Magnesium Level 2.1 Assessment/Plan Assessment/Plan Problems: (1) Hypertensive emergency Assessment & Plan: 04/29-Resolved (2) Resistant hypertension Assessment & Plan: 04/29- Continue carvedilol and hydrochlorothiazide. Due to acute kidney injury, Lisinopril will need to be discontinued. Continue sodium intake limit to 2 grams/day (3) Epistaxis Assessment & Plan: 04/29- No acute management needed today (4) VALERIA (acute kidney injury) Assessment & Plan: 04/29- BUN 48, Cr- 2.99. Discontinue Lisinopril. Evaluate for Renal artery stenosis with renal artery Doppler. Evaluate for urine metanephrines. Evaluate aldosterone renin ratio. (5) Obesity Assessment & Plan: 04/29- No acute management needed. (6) DVT prophylaxis Assessment & Plan: 04/29- Lovenox injections Clinical Quality Measures DVT/VTE Risk/Contraindication: Risk Factor Score Per Nursin RFS Level Per Nursing on Admit: 3=High Supervisory-Addendum Brief Verification & Attestation Participated in pt care: history, MDM, physical Personally performed: exam, history, MDM Care discussed with: Medical Student Procedures: n/a I personally saw and repeated the history and did my own exam on this patient today (see my physical exam documentation for my exam). History agrees with that documented by the medical student. I directed the plan of care as documented. MADELINE COX MED STUDENT Apr 29, 2020 12:37 ANTONINO DECKER MD Apr 29, 2020 17:09
--- NOTE | 2020-04-29 14:11 | NUR ---
CM/SS: Visited with pt as per his plan for discharge Plan: To be determine - pt is from home and will likely return there at time of discharge Summary: Pt reports his blood pressure is better, and they are now concerned about his kidneys. He reports that he had a brother who did dialysis and for 8 months, and just dropped one day. Pt is encouraged to not think the worst, and we can see what happens. Pt reports he will think positive. He thanks this worker for stopping by and checking on him. He is reminded when we know more on his discharge - we can plan accordingly. Pt agrees.
[2020-04-30 05:03] LABS: BASOPHILS % (AUTO) 0 % (0-10); EOSINOPHILS # (AUTO) 0.2 10^3/uL (0.0-0.3); EOSINOPHILS % (AUTO) 2 % (0-10); HEMATOCRIT 34 % (40-54); HEMOGLOBIN 11.1 g/dL (13.3-17.7); LYMPHOCYTES # (AUTO) 1.7 10^3/uL (1.0-4.0); LYMPHOCYTES % (AUTO) 17 % (12-44); MEAN CORPUSCULAR HEMOGLOBIN 28 pg (25-34); MEAN CORPUSCULAR HGB CONC 33 g/dL (32-36); MEAN CORPUSCULAR VOLUME 85 fL (80-99); MEAN PLATELET VOLUME 10.1 fL (9.0-12.2); MONOCYTES % (AUTO) 10 % (0-12); NEUTROPHILS % (AUTO) 70 % (42-75); PLATELET COUNT 357 10^3/uL (130-400); WHITE BLOOD COUNT 9.9 10^3/uL (4.3-11.0)
[2020-04-30 05:53] LABS: POTASSIUM 3.6 MMOL/L (3.6-5.0)
[2020-04-30 05:54] LABS: CALCIUM 8.3 MG/DL (8.5-10.1)
[2020-04-30 05:58] LABS: PHOSPHORUS 4.3 MG/DL (2.3-4.7)
[2020-04-30 05:59] LABS: CREATININE SERUM 2.25 MG/DL (0.60-1.30)
[2020-04-30 06:01] LABS: MAGNESIUM 2.1 MG/DL (1.6-2.4)
[2020-04-30] MEDS: CARVEDILOL 12.5 MG (COREG) TABLET PO SCH (08:45)
[2020-04-30] MEDS: HYDROCHLOROTHIAZIDE 25 MG (HCTZ) TAB PO SCH (08:45)
[2020-04-30] MEDS: DOCUSATE SODIUM 100 MG (COLACE) CAP PO SCH (08:53)
[2020-04-30] MEDS: SENNOSIDES 8.6 MG (SENOKOT) TAB PO SCH (08:53)
[2020-04-30] MEDS ORDERED: CARV25TA PO (11:04)
[2020-04-30] MEDS ORDERED: HYDR25TA4 PO (11:04)
--- NOTE | 2020-04-30 11:32 | Discharge Summary ---
MADELINE COX MED STUDENT 04/30/20 1132: Diagnosis/Chief Complaint Date of Admission Apr 26, 2020 at 22:00 Date of Discharge 04/30/20 Discharge Date: Apr 30, 2020 Admission Diagnosis Admission Diagnosis Hypertensive Emergency Discharge Diagnosis Resistant hypertension with acute Hypertensive Emergency Discharge Summary Hospital Course Hospital Course Gonzalez presented to the ED on SundayApril 26 with a chief complaint of epistaxis. Gonzalez was found to be in an hypertensive emergency. He was admitted for inpatient management. It was subsequently discovered that he knows he has h ypertension, but was unable to afford the medications. His blood pressure was treated and decreased to a safer level. While his blood pressure was managed on carvedilol, lisinopirl and hydrochlorotiazide, his kidney function declined. The lisinopril was discontinued and kidney functioned improved, but is not back to baseline. The nosebleeding has since stopped, no acute management is needed right now. It was recommended to Gonzalez that he follow up with a primary care physician, tow picker and take his medications, and have his kidney function evaluated next Sunday, May 03. Labs Laboratory Tests 04/28/20 03:43: White Blood Count 12.3H, Hemoglobin 11.7L, Hematocrit 37L, Neutrophils # (Auto) 9.1H, Monocytes # (Auto) 1.3H, Blood Urea Nitrogen 25H, Creatinine 1.68H 04/28/20 09:35: Urine Protein 1+H, Urine Ketones TRACEH, Urine Bilirubin 1+H, Urine Crystals PRESENTH, Urine Amorphous Sediment FEW NIYA URATESH, Urine Hyaline Casts 10-25H, Urine Granular Casts 2-5H, Urine Mucus MODERATEH 04/29/20 05:10: Hemoglobin 10.9L, Hematocrit 35L, Blood Urea Nitrogen 48H, Creatinine 2.99#H, Red Blood Count 4.04L, Calcium Level 8.4L 04/30/20 04:30: Hemoglobin 11.1L, Hematocrit 34L, Blood Urea Nitrogen 54H, Creatinine 2.25H, Red Blood Count 4.01L, Calcium Level 8.3L 04/30/20 05:40: Procedures None. Discharge Physical Examination Allergies: Coded Allergies: No Known Drug Allergies (Unverified , 04/22/20) Vitals & I&Os Vital Signs Date Time Temp Pulse Resp B/P (MAP) Pulse Ox O2 Delivery O2 Flow Rate FiO2 04/30/20 12:19 36.2 77 18 166/81 (109) 97 Room Air General Appearance: Alert, Oriented X3, Cooperative, No Acute Distress HEENT: PERRLA, EOMI Respiratory: Clear to Auscultation, Normal Air Movement Cardiovascular: Regular Rate, No Murmurs Abdominal: Normal Bowel Sounds, Soft, No Tenderness Extremities: No Cyanosis, No Edema, Normal Pulses, No Tenderness/Swelling Psych/Mental Status: Mental Status NL, Mood NL Discharge Home Medications Reviewed and agree with Discharge Medication list on patient's Discharge Inst ruction sheet Instructions to Patient/Family Please see electronic discharge instructions given to patient. Clinical Quality Measures Admission Status Admission Dx Hypertensive Emergency Admission Status: Inpatient Order (span 2 midnights) DVT/VTE Risk/Contraindication: VTE Addressed: Yes VTE Present on Admission: No Risk Factor Score Per Nursin RFS Level Per Nursing on Admit: 3=High ANTONINO DECKER MD 04/30/20 1426: Diagnosis/Chief Complaint Discharge Diagnosis Acute renal insufficiency Epistaxis Discharge Summary Discharge Physical Examination Allergies: Coded Allergies: No Known Drug Allergies (Unverified , 04/22/20) Supervisory-Addendum Brief Verification & Attestation Participated in pt care: history, MDM, physical Personally performed: exam, history, MDM Care discussed with: Medical Student Procedures: n/a I did my own history and physical exam and agree with those documented by the medical student and I directed the plan of care as documented. Creatinine was still above 2 on d/c, discussed with patient the importance of managing BP and following up, may need Nephrology referral if not resolving. MADELINE COX MED STUDENT Apr 30, 2020 11:32 ANTONINO DECKER MD Apr 30, 2020 14:26
--- NOTE | 2020-04-30 12:43 | NUR ---
CM/SS: Visited with pt as per his plan for discharge. Plan: Pt will return home with no identified services. Pt will need a ride home via cab and can pay for half of the cost of the ride. Summary: Pt will discharge today with getting established physician, medical care and prescriptions at [facility]. Pt is encouraged to follow up with his medical care and take his medications as prescribed. He will need a ride to [place] - and is willing to pay half for the cab ride. [employer] is called and gave the rate of $90.00 for the ride there GPS with the address. Pt reports that he will pay for half. Pt informed he will pay $45.00 and he is aware that the hospital will pay for $45.00. Pt signs the emoquo voucher and thanks this worker for helping. Pt is wished well. RUBEN Callahan is given the cab voucher and informed of the approval for the ride to [place]. She is awaiting orders and pt can be dismissed.
--- NOTE | 2020-04-30 12:44 | Discharge Summary ---
Discharge Inst-[facility] Discharge Medications New, Converted or Re-Newed RX: Transmitted to Pharmacy New Medications: Hydrochlorothiazide (Hydrochlorothiazide) 25 Mg Tablet 25 MG PO DAILY@0900, #60 TAB 0 Refills Changed Medications: Carvedilol (Carvedilol) 25 Mg Tablet 25 MG PO BID, #60 TAB 0 Refills (Changed from: Carvedilol 6.25 Mg Tablet 6.25 Mg PO BID) Continued Medications: Multivitamin/Iron/Folic Acid (Multivitamin with Iron Tablet) 1 Each Tablet 1 EACH PO DAILY, TAB Discontinued Medications: Cephalexin (Cephalexin) 500 Mg Capsule 500 MG PO BID, CAP FILLED 04-22-2020 #14/7 DAY SUPPLY Ibuprofen (Ibuprofen) 200 Mg Tablet 800 MG PO Q8H PRN for PAIN-MILD (1-4), TAB Lisinopril (Lisinopril) 40 Mg Tablet 40 MG PO DAILY, TAB Patient Instructions Goal/Follow Up Appt: Follow up with Verona Wright at [facility] in [place] on 05/04 at 2 pm. Go to [facility] in [place] to have labs drawn on Sunday. We are working on setting up transportation for your visit, someone from [facility] should call you with information. Return to The Hospital For: Fever, decreased urination, chest pain, headache Activity & Diet Discharge Diet: Low Sodium Diet Activity as Tolerated: Yes Copy Copies To 1: JAMES Palomares BETHANY N MD Apr 30, 2020 12:44
[2020-04-30 14:59] VITALS: BP 166/81
== END 2020-04-30 13:20 | disposition home or self-care (01) | DRG 305 ==
LOC: EDUNIT# 19:21 → ER FS 19:23 → ICU 22:00 → ER FS 23:49 → CSD 04-27 08:42 → 4TH 04-28 07:00
PROVIDERS: ADMIT Internal Medicine; ATTEND Family Medicine
DX: I16.1 Hypertensive emergency (principal); N17.9 Acute kidney failure, unspecified; I10 Essential (primary) hypertension; R04.0 Epistaxis; D72.829 Elevated white blood cell count, unspecified; E66.9 Obesity, unspecified; Z68.38 Body mass index [BMI] 38.0-38.9, adult
CPT/HCPCS: 36415; 71045; 76770; 80048; 80053; 81000; 82088; 82962; 83735; 83835; 84100; 84443; 85025; 85610; 93005; 93975